=== PATIENT | female | born 1995 | race Caucasian/White ===

== ENCOUNTER 2017-12-23 14:33 | Emergency (ER) | payer MEDICAID ==
[~2017-12-23] VITALS: Ht 162.6 cm; Wt 91.0 kg
[2017-12-23 14:34] VITALS: BP 117/66
[2017-12-23] MEDS ORDERED: acetaminophen 325mg tablet PO ONE (15:15)
== END 2017-12-23 15:25 | disposition home or self-care (01) ==
LOC: ER 14:33
DX: S61.012A Laceration without foreign body of left thumb without damage to nail, initial encounter (principal); W26.0XXA Contact with knife, initial encounter; Y93.89 Activity, other specified; Y92.89 Other specified places as the place of occurrence of the external cause; Y99.8 Other external cause status
CPT/HCPCS: 12001; 99283; A6449